=== PATIENT | female | born 1985 | race Caucasian/White ===

== ENCOUNTER 2020-05-13 10:53 | Emergency (ER) | payer OTHER, SELFPAY ==
[2020-05-13 10:56] VITALS: BP 138/83; PULSE 97; RESP 18; TEMP 36.3; O2SAT 98; BMI 17.7
[2020-05-13 12:20] LABS: Add Urine Microscopic? YES; Bilirubin Urine Neg (Negative); Blood Urine 3+ (Negative); Glucose Urine UA Norm (Normal); Ketones Urine 1+ (Negative); Leukocyte Esterase Urine Negative (Negative); Nitrate Urine Negative (Negative); Protein Urine Neg (Negative); Urine Appearance Clear (CLEAR); Urine Color Yellow (Yellow); Urobilinogen Urine Norm (Negative); pH Urine 5 (5-7)
[2020-05-13 12:26] LABS: Bacteria Urine 1+ /hpf; Mucus Urine 1+ /hpf; RBC Urine 0-4 /hpf (0-2); WBC Urine 0-4 /hpf (0-5)
--- NOTE | 2020-05-13 14:20 | CT_ITS ---
WS: [id number] CT ABDOMEN AND PELVIS NONCONTRAST HISTORY: Left flank pain TECHNIQUE: Imaging performed through the abdomen and pelvis. Coronal and sagittal reformats are submi tted. All CT scans at [facility] use at least one of these dose optimization techniques: automated exposure control; mA and/or kV adjustment per patient size (includes targeted exams where d ose is matched to clinical indication); or iterative reconstruction. DLP: 463.68 mGy.cm COMPARISON: 02/27/2016 Lower thorax: Lung bases are clear. Visualized heart is normal. No hiatal hernia. Liver: Normal size liver. No mass or bile duct dilatation. Gallbladder: Prior cholecystectomy. Pancreas: Poorly visualized pancreas. Spleen: Normal. Adrenal glands: Normal. No mass. Right kidney: Normal size kidney with numerous tiny calcifications measuring 2 to 3 mm. No obstructio n. RIGHT ureter is normal caliber. Left kidney: Normal size kidney with numerous calcifications. The largest calcification in the upper pole measures 6 mm. No hydronephrosis or ureteral calcifications. Aorta: Normal abdominal aorta, no aneurysm or atherosclerosis. No free fluid, intraperitoneal air or significant lymphadenopathy. GI tract: By history prior appendectomy. Numerous surgical sutures in the RIGHT lower quadrant. There is moderate fecal retention. No obstructive pattern. No wall thickening. Abdominal wall: Negative. No hernia. Pelvis: Markedly distended urinary bladder. Uterus is anteverted. The uterus and ovarian sizes are di fficult to determine without contrast. There is a small amount of free fluid in the pelvis which coul d be due to a ruptured ovarian cyst. Osseous structures: Unremarkable. CT/CT kidney stone [id number] IMPRESSION: 1. Bilateral nephrolithiasis. No renal obstruction or ureteral calcifications identified. 2. Prior cholecystectomy and appendectomy. 3. Small amount of free fluid in the pelvis could be physiologic. 4. Marked distention of the urinary bladder.
--- NOTE | 2020-05-13 14:23 | ED_ITS ---
HPI - Female Genitourinary General: Chief complaint: Urogenital-Female Stated complaint: SHARP L KIDNEY PAINS Time Seen by Provider: 05/13/20 14:04 History of Present Illness: HPI Narrative: The patient is a 34-year-old female with past medical history kidney stone who comes to the ER complaining of left flank pain since last night. 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 She says it does hurt when she moves but the pain began to radiate to her left groin and she was concerned. Denies blood in the urine. No other complaints today. Denies urinary frequency or burning MD elicited complaint: flank pain (left) Onset (ago): hour(s) (18) Severity: moderate Female Urogenital Radiation: L Flank Quality of pain: cramping and sharp Consistency: constant Associated symptoms: Deny abdominal pain, short of breath, fevers/chills, headache(s) or nausea Patient : No Review of Systems General: Reports: 10 or more systems reviewed and unremarkable except in HPI and below Const: Denies: fatigue Eyes: Denies: change in vision, blurry vision or eye redness ENMT: Denies: throat pain, swelling of lips/tongue, ear or mastoid pain or nasal congestion Card: Denies: chest pain, palpitations, irregular heart rhythm, edema, dyspnea on exertion or orthopnea Resp: Denies: dyspnea, productive cough or non-productive cough GI: Denies: abdominal pain or nausea : Reports: flank pain; Denies: difficulty voiding, urinary frequency or urinary urgency Musc: Denies: neck pain, back pain, extremity pain, joint pain, joint redness, limited range of motion or muscle weakness Skin/Breast: Denies: rash, pruritus, erythema, skin pain or skin tenderness Neuro: Denies: headache(s) Psych: Denies: anxiety or depression Endo: Denies: polyuria All/Imm: Denies: urticaria, throat swelling or tongue swelling Physical Exam Const: COMMON NORMALS: no acute distress, average body habitus, patient oriented x3, no limitations, healthy appearing, alert and well nourished GENERAL APPEARANCE: cooperative, comfortable, well kempt and well developed ORIENTATION/CONSCIOUSNESS: Yes awake, Yes oriented to person, Yes oriented to place and Yes oriented to time HENMT: COMMON NORMALS: normocephalic, external ears normal and Normal external nose present HEAD & SCALP: normal to inspection and normocephalic NOSE: Normal external nose present EXTERNAL EAR: Yes external ears normal MOUTH: Normal oral and palatal mucosa present THROAT: posterior oropharynx normal Eye: COMMON NORMALS: Equal, round and reactive pupils present and EOMs intact bilaterally GENERAL EYE: appearance normal, both eyes and all related structures PUPIL: Yes Equal, round and reactive pupils present Neck/C-Spine: COMMON NORMALS: full ROM, no lymphadenopathy, no meningeal signs and no JVD GENERAL: Yes normal visual inspection Lymph: LYMPHATIC: no lymphadenopathy noted Chest: COMMONS NORMALS: normal inspection of the chest and normal palpation of entire chest wall Resp: COMMON NORMALS: normal respiratory effort, No retractions, No use of accessory muscles, clear to auscultation bilaterally and percussion normal EFFORT & INSPECTION: Yes able to speak in complete sentences AUSCULTATION: clear to auscultation bilaterally PERCUSSION: percussion normal Cardio: COMMON NORMALS: no JVD, regular rate, regular rhythm, S1 normal heart sound present, S2 normal heart sound present and Peripheral pulses 2+ throughout RATE: regular rate RHYTHM: regular rhythm HEART SOUNDS: S1 normal heart sound present and S2 normal heart sound present PERIPHERAL PULSES: Peripheral pulses 2+ throughout GI: COMMON NORMALS: Normal to inspection, nondistended, normoactive bowel sounds present, Soft to palpation, non-tender and no masses INSPECTION: Yes normal to inspection PALPATION: Yes Soft to palpation : BLADDER/KIDNEY EXAM: Yes CVA tenderness Back/Pelvis: COMMON NORMALS: thoracic and lumbar spine normal to inspection, no thoracic nor lumbar tenderness and thoraco-lumbar ROM normal GENERAL BACK: Yes CVA tenderness CVA tenderness: left THORACIC SPINE/UPPER BACK: Yes pain with ROM Extremity: COMMON NORMALS: normal to inspection, full ROM, capillary refill normal, no joint enlargement and no pedal edema GENERAL: Yes normal exam except as noted Neuro: COMMON NORMALS: patient oriented x3, CN's II-XII intact bilaterally, moves all extremities, no focal motor deficits, no sensory deficits noted and g ait normal SENSORIUM/ORIENTATION: Yes alert, Yes oriented to person, Yes oriented to place and Yes oriented to time MENINGEAL SIGNS: Yes no meningeal signs Psych: COMMON NORMALS: mental status grossly normal, Normal thought process present, cooperative, normal affect and speech normal APPEARANCE: Yes well kempt ATTITUDE: Yes calm SPEECH: Yes normal speech THOUGHT PROCESS: Normal thought process present Skin: COMMON NORMALS: no rashes or lesions noted GENERAL SKIN EXAM: no rashes or lesions noted Course Vital Signs: Vital signs: Vital Signs Temperature 97.3 F L 05/13/20 10:56 Pulse Rate 72 05/13/20 15:37 Respiratory Rate 16 05/13/20 15:37 Blood Pressure 102/70 05/13/20 15:37 Pulse Oximetry 99 05/13/20 15:37 MDM - Female MDM Narrative: Medical decision making narrative: The patient has left flank pain. CT was positive for bilateral kidney stones however no ureterolithiasis. Likely had back strain causing her pain and a urinary tract infection. She was sent home with Flexeril and Cipro. Follow-up with primary care in 3 to 5 days. Return to the ER with worsening symptoms Differential Diagnosis: Differential diagnosis: Likely abdominal pain and calculus of kidney Lab Data: Labs: Lab Results 05/13/20 05/13/20 05/13/20 Range/Units 11:21 11:21 14:16 WBC 9.4 (4.0-10.0) 10^3/ uL RBC 4.34 (4.1-5.3) 10^6/u L Hgb 13.1 (11.5-15.3) g/dL Hct 40.5 (37.0-47.0) % MCV 93.3 (81-99) fL MCH 30.2 (28.0-34.0) pg MCHC 32.3 (30.0-36.0) g/dL RDW 11.9 L (12.1-15.1) % Plt Count 269 (130-400) 10^3/c mm MPV 10.3 (7.4-10.4) fL Neut % (Auto) 67.1 % Lymph % (Auto) 25.5 % Maries % (Auto) 6.2 % Eos % (Auto) 0.4 % Baso % (Auto) 0.5 % Neut # (Auto) 6.30 (1.8-7.7) 10^3/u L Lymph # (Auto) 2.4 (0.8-4.8) 10^3/u L Maries # (Auto) 0.6 (0.2-0.9) 10^3/u L Eos # (Auto) 0.0 (0.0-0.8) 10^3/u L Baso # (Auto) 0.1 (0.0-0.1) 10^3/u L Nucleated RBC % (a uto) 0 % Nucleated RBCs # 0.0 /100WBC Sodium (136-145) mmol/L Potassium (3.5-5.1) mmol/L Chloride (98-107) mmol/L Carbon Dioxide (22-29) mmol/L Anion Gap (5-19) BUN (6-20) mg/dL Creatinine (0.5-0.9) mg/dL GFR Calculation (90-130) mL/min Glucose (65-115) mg/dL Calculated Osmolal ity (285-295) mOsm/k g Lactate (0.5-2.2) mmol/L Calcium (8.5-10.5) mg/dL Total Bilirubin (0.15-1.2) mg/dL AST (0-32) U/L ALT (0-33) U/L Alkaline Phosphata se (35-105) IU/L Total Protein (6.6-8.7) g/dL Albumin (3.5-5.2) g/dL Globulin (1.3-4.6) g/dL Lipase (13-60) U/L Urine Color Yellow (Yellow) Urine Appearance Clear (CLEAR) Urine pH 5 (5-7) Ur Specific Gravit y 1.010 (1.005-1.030) Urine Protein Neg (Negative) Urine Glucose (UA) Norm (Normal) Urine Ketones 1+ H (Negative) Urine Blood 3+ H (Negative) Urine Nitrate Negative (Negative) Urine Bilirubin Neg (Negative) Urine Urobilinogen Norm (Negative) mg/dL Ur Leukocyte Audra ase Negative (Negative) Urine RBC 0-4 H (0-2) /hpf Urine WBC 0-4 H (0-5) /hpf Ur Squamous Epith Cells 5-10 H (0-5) /hpf Amorphous Sediment Not Reportable Urine Bacteria 1+ H (NONE) /hpf Urine Mucus 1+ /hpf Urine HCG, Qual Negative (Negative) 01/07/21 01/07/21 Range/Units 14:16 14:16 WBC (4.0-10.0) 10^3/ uL RBC (4.1-5.3) 10^6/u L Hgb (11.5-15.3) g/dL Hct (37.0-47.0) % MCV (81-99) fL MCH (28.0-34.0) pg MCHC (30.0-36.0) g/dL RDW (12.1-15.1) % Plt Count (130-400) 10^3/c mm MPV (7.4-10.4) fL Neut % (Auto) % Lymph % (Auto) % Maries % (Auto) % Eos % (Auto) % Baso % (Auto) % Neut # (Auto) (1.8-7.7) 10^3/u L Lymph # (Auto) (0.8-4.8) 10^3/u L Maries # (Auto) (0.2-0.9) 10^3/u L Eos # (Auto) (0.0-0.8) 10^3/u L Baso # (Auto) (0.0-0.1) 10^3/u L Nucleated RBC % (a uto) % Nucleated RBCs # /100WBC Sodium 137 (136-145) mmol/L Potassium 4.1 (3.5-5.1) mmol/L Chloride 103 (98-107) mmol/L Carbon Dioxide 23 (22-29) mmol/L Anion Gap 15.1 (5-19) BUN 12 (6-20) mg/dL Creatinine 0.7 (0.5-0.9) mg/dL GFR Calculation 97.0 (90-130) mL/min Glucose 76 (65-115) mg/dL Calculated Osmolal ity 283 L (285-295) mOsm/k g Lactate 0.6 (0.5-2.2) mmol/L Calcium 9.3 (8.5-10.5) mg/dL Total Bilirubin 0.4 (0.15-1.2) mg/dL AST 22 (0-32) U/L ALT 24 (0-33) U/L Alkaline Phosphata se 56 (35-105) IU/L Total Protein 7.1 (6.6-8.7) g/dL Albumin 4.8 (3.5-5.2) g/dL Globulin 2.3 (1.3-4.6) g/dL Lipase 29 (13-60) U/L Urine Color (Yellow) Urine Appearance (CLEAR) Urine pH (5-7) Ur Specific Gravit y (1.005-1.030) Urine Protein (Negative) Urine Glucose (UA) (Normal) Urine Ketones (Negative) Urine Blood (Negative) Urine Nitrate (Negative) Urine Bilirubin (Negative) Urine Urobilinogen (Negative) mg/dL Ur Leukocyte Audra ase (Negative) Urine RBC (0-2) /hpf Urine WBC (0-5) /hpf Ur Squamous Epith Cells (0-5) /hpf Amorphous Sediment Urine Bacteria (NONE) /hpf Urine Mucus /hpf Urine HCG, Qual (Negative) Discharge Plan Discharge Patient Disposition: Home Clinical Impression: Back strain Qualifiers: Encounter type: initial encounter Qualified Code(s): S39.012A - Strain of muscle, fascia and tendon of lower back, initial encounter UTI (urinary tract infection) Qualifiers: Urinary tract infection type: site unspecified Hematuria presence: with hematuria Qualified Code(s): N39.0 - Urinary tract infection, site not specified Condition: Stable Prescriptions: New cyclobenzaprine 5 mg tablet 5 mg PO TID PRN (Reason: muscle spasm) Qty: 14 RF: 0 Cipro 500 mg tablet 500 mg PO Q12H Qty: 10 RF: 0 No Action ibuprofen 200 mg Tablet 400 - 600 mg PO PRN RF: 0 omeprazole 20 mg Capsule,Delayed Release(Dr/Ec) 20 mg PO BID RF: 0 Discharge Orders: Discharge ED (Routine); Ordered 05/13/20 Ordered By: Deny Lyn Discharge Diet: Advance as tolerated Discharge Activity: Resume usual activity Patient Instructions: Urinary Tract Infection in Women (ED), Low Back Strain (ED) Activity Restrictions/Additional Instructions: You most likely have a urinary tract infection and back strain. Please take the Flexeril for this and do not drive while taking that medicine as it makes you sleepy. Also likely have a urinary tract infection. Please take the antibiotic as directed and your symptoms should improve in a few days. Return to the ER with worsening symptoms otherwise follow-up with your primary care physician in a few days to monitor improvement Coding Level of Care Code ED [employer] Technician for Odette Fwd Exam Comprehensive
[2020-05-13 14:26] LABS: Basophils # 0.1 10^3/uL (0.0-0.1); Basophils % 0.5 %; Eosinophils % 0.4 %; Hematocrit 40.5 % (37.0-47.0); Hemoglobin 13.1 g/dL (11.5-15.3); Lymphocytes # 2.4 10^3/uL (0.8-4.8); Lymphocytes % 25.5 %; Mean Corpuscular HGB Conc 32.3 g/dL (30.0-36.0); Mean Corpuscular Hemoglobin 30.2 pg (28.0-34.0); Mean Corpuscular Volume 93.3 fL (81-99); Mean Platelet Volume 10.3 fL (7.4-10.4); Monocytes # 0.6 10^3/uL (0.2-0.9); Monocytes % 6.2 %; Neutrophils % 67.1 %; Nucleated Red Blood Cells % 0 %; Platelet Count 269 10^3/cmm (130-400); Red Blood Count 4.34 10^6/uL (4.1-5.3); Red Cell Distribution Width 11.9 % (12.1-15.1); White Blood Count 9.4 10^3/uL (4.0-10.0)
[2020-05-13] MEDS: ketorolac 30 mg/mL INJ 15 MG IVP (14:33)
[2020-05-13] MEDS: sodium chloride 0.9% 1,000 ML 500 ML IV (14:33)
[2020-05-13 14:35] VITALS: BP 100/66; PULSE 67; RESP 16; O2SAT 97
[2020-05-13 14:44] LABS: Lactate (Lactic Acid level) 0.6 mmol/L (0.5-2.2)
[2020-05-13 14:45] LABS: Alanine Aminotransferase 24 U/L (0-33); Albumin Level 4.8 g/dL (3.5-5.2); Alkaline Phosphatase 56 IU/L (35-105); Anion Gap 15.1 (5-19); Aspartate Amino Transferase 22 U/L (0-32); Blood Urea Nitrogen 12 mg/dL (6-20); Calcium 9.3 mg/dL (8.5-10.5); Carbon Dioxide 23 mmol/L (22-29); Chloride 103 mmol/L (98-107); Globulin 2.3 g/dL (1.3-4.6); Glucose 76 mg/dL (65-115); Lipase 29 U/L (13-60); Osmolality Calculated 283 mOsm/kg (285-295); Potassium 4.1 mmol/L (3.5-5.1); Sodium 137 mmol/L (136-145); Total Bilirubin 0.4 mg/dL (0.15-1.2); Total Protein 7.1 g/dL (6.6-8.7)
--- NOTE | 2020-05-13 15:35 | PC.NURSE ---
pt to bathroom
[2020-05-13 15:37] VITALS: BP 102/70; PULSE 72; RESP 16; O2SAT 99
[2020-05-13] MEDS: cyclobenzaprine 10 mg Tablet 5 MG PO (15:52)
[2020-05-13 16:16] VITALS: BP 105/64; PULSE 80; RESP 15; O2SAT 100
== END 2020-05-13 16:17 | disposition home or self-care (01) ==
PROVIDERS: Nurse Practitioner Family; Emergency Provider Family Medicine
DX: S39.012A Strain of muscle, fascia and tendon of lower back, initial encounter (principal); N39.0 Urinary tract infection, site not specified; X58.XXXA Exposure to other specified factors, initial encounter
CPT/HCPCS: 12345; 74176; 80053; 81001; 81025; 83605; 83690; 85025; 96361; 96374; 99282; 99283; J1885; J7030

== ENCOUNTER → 2022-03-16 09:36 | Outpatient (BNVA) | payer OTHER, SELFPAY | PROVIDERS: Visit Provider Family Medicine Adult Medicine | DX: J02.9 Acute pharyngitis, unspecified (principal) | CPT/HCPCS: 87880 ==